=== PATIENT | female | born 1965 | race Caucasian/White ===

== ENCOUNTER 2018-08-19 19:19 | Emergency (ER) | payer OTHER ==
--- NOTE | 2018-08-19 19:43 | EDPHY ---
HPI/HX/ROS/PE/MDM Narrative: CHIEF COMPLAINT: Chest pain HPI: The patient is 53-year-old female with no known cardiac history. At approximately 6:00 p.m. Tonight, an hour and half ago, the patient developed sharp left-sided chest pain that was located underneath her left breast. This went away after taking 3 ibuprofen and she is now chest pain-free. She denies associated shortness of breath, vomiting or syncope. She states she has never had this symptom before. 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 She denies recent illness. REVIEW OF SYSTEMS: Aside from elements discussed in the HPI, a comprehensive 10-point review of systems was reviewed and is negative. PMH: No known cardiac history. No history of blood clot. SOCIAL HISTORY: . Works in the food industry. PHYSICAL EXAM: General:Patient is alert, in no acute distress. ENT:Eyes are normal to inspection. Extremely poor dentition noted. Neck: Normal inspection. Full range of motion. Respiratory:No respiratory distress. Breath sounds normal bilaterally. Cardiovascular: Regular rate and rhythm. Strong peripheral pulses. Normal cap refill. Abdomen:The abdomen is nontender to palpation. There are no peritoneal signs. There are normal bowel sounds. Back: Normal to inspection. No tenderness to palpation. Skin: Normal color. No rash. Warm and dry. Extremities: Normal appearance. Full range of motion. Neuro: Oriented x3. Normal motor function. Normal sensory function. ED Course: EKG shows normal sinus rhythm without ST change or other abnormality. MDM: This patient presents with atypical chest pain. Thankfully, workup in the emergency department is negative including negative EKG, troponin other results. I see no indication of acute coronary syndrome, pulmonary embolus, pneumothorax, pneumonia. I offered the patient admission the hospital for further workup but she declines. I have placed an order for urgent cardiology outpatient evaluation and she is comfortable with this plan. We discussed strict return precautions. - Data Points Laboratory Results: Laboratory Results 08/19/18 19:40 08/19/18 19:40 08/19/18 08/19/18 08/19/18 19:44 19:40 19:40 WBC 11.09 10^3/uL H 10^3/uL (3.80-9.50) RBC 4.86 10^6/uL 10^6/uL (4.18-5.33) Hgb 14.9 g/dL g/dL (12.6-16.3) Hct 42.0 % % (38.0-47.0) MCV 86.4 fL fL (81.5-99.8) MCH 30.7 pg pg (27.9-34.1) MCHC 35.5 g/dL g/dL (32.4-36.7) RDW 12.1 % % (11.5-15.2) Plt Count 207 10^3/uL 10^3/uL (150-400) MPV 11.2 fL fL (8.7-11.7) Neut % (Auto) 58.2 % % (39.3-74.2) Lymph % (Auto) 29.8 % % (15.0-45.0) [place] % (Auto) 7.8 % % (4.5-13.0) Eos % (Auto) 3.3 % % (0.6-7.6) Baso % (Auto) 0.6 % % (0.3-1.7) Nucleat RBC Rel Count 0.0 % % (0.0-0.2) Absolute Neuts (auto) 6.45 10^3/uL 10^3/uL (1.70-6.50) Absolute Lymphs (auto) 3.31 10^3/uL H 10^3/uL (1.00-3.00) Absolute Monos (auto) 0.86 10^3/uL H 10^3/uL (0.30-0.80) Absolute Eos (auto) 0.37 10^3/uL 10^3/uL (0.03-0.40) Absolute Basos (auto) 0.07 10^3/uL 10^3/uL (0.02-0.10) Absolute Nucleated RBC 0.00 10^3/uL 10^3/uL (0-0.01) Immature Gran % 0.3 % % (0.0-1.1) Immature Gran # 0.03 10^3/uL 10^3/uL (0.00-0.10) Sodium 140 mEq/L mEq/L (135-145) Potassium 3.9 mEq/L mEq/L (3.3-5.0) Chloride 107 mEq/L mEq/L (97-110) Carbon Dioxide 23 mEq/l mEq/l (22-31) Anion Gap 10 mEq/L mEq/L (6-14) BUN 19 mg/dL mg/dL (7-23) Creatinine 1.0 mg/dL mg/dL (0.6-1.0) Estimated GFR 58 Glucose 100 mg/dL mg/dL (70-100) Calcium 9.9 mg/dL mg/dL (8.5-10.4) POC Troponin I 0.00 ng/mL ng/mL (0.00-0.08) Point of Care Test Results: Chemistry 08/19/18 19:44 POC Troponin I 0.00 ng/mL ng/mL (0.00-0.08) General Time Seen by Provider: 08/19/18 19:33 Initial Vital Signs: Initial Vital Signs Temperature (C) 36.4 C 08/19/18 19:26 Heart Rate 94 08/19/18 19:26 Respiratory Rate 16 08/19/18 19:26 Blood Pressure 152/80 H 08/19/18 19:26 O2 Sat (%) 92 08/19/18 19:26 O2 Delivery Mode Room Air Allergies/Adverse Reactions: bee venom protein (honey bee) Allergy (Verified 08/19/18 19:28) Home Medications: Medication Instructions Recorded NK [No Known Home Meds] 08/19/18 Departure - Departure Disposition: Home, Routine, Self-Care Clinical Impression: Chest pain Condition: Good Instructions: Chest Pain (ED) Additional Instructions: Follow-up with your primary doctor within 72 hours. Return to the Emergency Department for fever, chest pain, shortness of breath, increasing pain or other worsening of condition. Follow up with a rouge mixer for further testing, as soon as possible, within one week. We would be happy to reevaluate you and observe you in the hospital at any time. Referrals: NONE *PRIMARY CARE P,. [Primary Care Provider] - As per Instructions Santiago De La Cruz MD [Medical Doctor] - As per Instructions
[2018-08-19 19:49] LABS: PLATELET COUNT 207 10^3/uL (150-400)
[2018-08-19 20:48] VITALS: BP 127/72
--- NOTE | 2018-08-19 21:27 | CPEKG ---
Test Reason : OPEN Blood Pressure : / mmHG Vent. Rate : 088 BPM Atrial Rate : 088 BPM P-R Int : 111 ms QRS Dur : 083 ms QT Int : 351 ms P-R-T Axes : 075 090 029 degrees QTc Int : 425 ms Sinus rhythm Borderline right axis deviation Confirmed by Darryn Gillis ([id number]) on 08/19/2018 9:27:21 PM Referred By: Confirmed By:Darryn Gillis
== END 2018-08-19 21:03 | disposition home or self-care (01) ==
DX: R07.9 Chest pain, unspecified (principal); J40 Bronchitis, not specified as acute or chronic
CPT/HCPCS: 84484-PO

== ENCOUNTER → 2019-02-26 | Outpatient (CLI) | payer OTHER | LOC: BMCIMAGING 12:45 | PROVIDERS: ATTEND Internal Medicine | DX: J40 Bronchitis, not specified as acute or chronic (principal) ==